=== PATIENT | female | born 1945 | race Caucasian/White ===

== ENCOUNTER 2017-02-01 17:05 | Inpatient (IN) | payer MEDICARE ==
[2017-02-01] VITALS (7 sets, daily range): BP systolic 111–139; BP diastolic 75–98; PULSE 63–109; RESP 16–20; O2SAT 96–99
[~2017-02-01] VITALS: Ht 157.5 cm; Wt 71.1 kg
--- NOTE | 2017-02-01 17:20 | ED.REPORT ---
HPI-Dizziness / Weakness Date of Service Feb 01, 2017 ED Provider: Yovany Del Angel MD Pt is a 71 y/o female w/ a hx of lung CA, COPD, HTN, presenting to the ED via EMS with multiple medical complaints. The patient complains of dizziness, nausea , THOMAS, heart palpitations, general feeling of unwell, all beginning after a chemotherapy treatment 4 days ago at [facility] for lung cancer. Her symptoms have seemed to significantly worsen yesterday. Pt denies vomiting, fever, chills , diarrhea, bleeding, CP, SOB, dysuria, change in diaphoresis. The patient had a similar episode previously caused by chemotherapy treatment but this episode she is concerned because of her elevated heart rate. She states she was seen for rapid heart rate recently at [facility] and was prescribed Metoprolol. There have been no other recent changes in medications. Oncologist: Dr. Chavez Nursing Notes Stated Complaint: DIZZINESS Chief Complaint: General Complaint Nursing Notes Reviewed: Yes ([employer], Source MDxs not reconciled) Allergies: Coded Allergies: ciprofloxacin (Unverified Allergy, Mild, rash, 02/01/17) General Time Seen by MD: 17:17 Chief Complaint Generalized weakness Hx Obtained From: Patient, EMS Arrived By: Ambulance Onset Occurred: 4 days ago Symptom Duration: Since onset Severity: Current: No pain currently Severity: Maximum: No pain Recent Healthcare: Previous diagnosis Similar Sx Previous: Yes Past Medical History Past Medical History Lung cancer - chemotherapy treatment DDD Hypertension COPD 1 L NC dependent History of C. difficile colitis in October 2016 GERD Hyperlipidemia Hypertension Sleep apnea Past Surgical History Left subclavian port Hysterectomy Knee Hysterectomy Proscar skip E in November 2016 Colonoscopy with polypectomy Ectopic surgery Lumbar disc surgery Reports: Appendectomy Smoking History Current Every Day Smoker Social History Alcohol Use: Denies alcohol use Drug Use: Denies drug use Ambulatory Status Independent Review of Systems Constitutional: Reports: Fatigue, Malaise, Weakness - generalized, Denies: Chills, Fever Respiratory: Denies: Non-productive cough, Shortness of breath Cardiovascular: Reports: Palpitations, Denies: Chest pain, Dyspnea on exertion GI: Reports: Nausea, Denies: Abdominal pain, Bloody/tarry stool, Diarrhea, Melena, Vomiting Hematologic: Denies Bleeding Skin: Denies Diaphoresis Neurologic: Reports: Dizziness, Headache, Lightheaded Complete sys rev & neg: except as marked. Female: Denies: Dysuria Physical Exam Initial Vital Signs Vital Signs (First) Date Time Temp Pulse Resp B/P Pulse Ox O2 Delivery O2 Flow Rate FiO2 02/01/17 17:00 36.6 67 19 112/93 97 Room Air Initial VS: Reviewed, Vital signs normal ENT: Mucous membranes moist, Conjunctiva normal, No scleral icterus Neck: Supple, Full range of motion Abdomen / GI: Soft, Non-tender, No distention Extremities: Vascular intact, Neuro intact, No swelling Skin: Warm, Dry, No cyanosis Psychiatric: Mood/affect normal, Behavior normal, Normal thought content General/Constitutional: Awake, Alert, No acute distress, Cooperative, Not toxic appearing Appears fatigued Head / Eyes: Atraumatic, Normocephalic, PERRL Respiratory / Chest: Breath sounds NL, Breath sounds = bilat, No respiratory distress, No rales, No rhonchi, No wheezing, No retractions, No stridor Cardiovascular: Heart rate NL, Regular rhythm, Heart sounds NL, No gallop, No murmurs, No rubs Neurologic: Oriented X3, Speech NL, No motor deficits, No sensory deficits, CN II - XII intact, Cerebellar NL, Memory NL Interpretation & Diagnostics Lab Results Interpretation Result Diagram: 02/01/17 1715 Test 02/01/17 17:15 White Blood Count 7.1th/mm3 (3.8-10.1) Red Blood Count 4.34mil/mm3 (3.90-5.20) Hemoglobin 12.8g/dL (12.0-15.6) Hematocrit 35.7% (35.0-46.0) Mean Corpuscular Volume 82.3fL (81-100) Mean Corpuscular Hemoglobin 29.5pg (27.0-35.0) Mean Corpuscular Hemoglobin Concent 35.9% (32.0-37.0) Red Cell Distribution Width 15.1% (12.3-15.4) Platelet Count 135bil/L (150-400) Neutrophils (%) (Auto) 86.1% (40-74) Lymphocytes (%) (Auto) 9.6% (14-46) Monocytes (%) (Auto) 3.7% (4-12) Eosinophils (%) (Auto) 0.3% (0-5) Basophils (%) (Auto) 0% (0-3) Lab Results Interpretation: CBC normal Labs pending Re-Eval/Medical Decision Med Decision/Clinical Course This is a 71-year-old female with lung cancer who is oncologist is at [facility] who reports that she got chemotherapy about a week ago now developed dizziness and nausea and feels terrible-this is happening as previous chemotherapy. She has recenty develops a rapid heart rate, as recently seen at [facility] ED and started metoprolol, and she has been on this medicine for a week. She states that her symptoms are mainly from her chemotherapy she has gotten the dizziness and weakness and nausea with it before, she was slightly rapid heart rate as well, so became increasing concerned and came to the ED. She has not had chest pain, not had shortness of breath, she has not had fevers , she is not had new diaphoresis she has had night sweats for several months, she denies leg swelling or findings of DVT. And she appears fatigued, but nontoxic. She is in no distress. Point an EKG, screening labs are being obtained-the patient is being turned over to Dr. Ivan for further evaluation. Records being obtained from [facility]. Source of Hx: Old records Counseled Regarding: Diagnosis, Lab results, Need for follow-up, When/why to return to ED Patient Discharge & Departure Shift Change Sign-Out Patient Care Transferred: Yes Discussed Complaint(s): Yes Laboratory Evaluation: Ordered, not yet done Impression: Primary Impression: Dizziness Additional Impressions: Nausea Dehydration Chemotherapy induced nausea and vomiting Disposition: Home Discharge Condition All VS Reviewed: Yes Condition: Stable Referrals: Jaycob Starr (PCP) Care Transferred to: Dr Jenkins Care Transferred at: 18:05 Baudilio Attestation Portions of this note were transcribed by Edmund Carnes. I, Dr. Del Angel personally performed the history, physical exam and medical decision-making; I reviewed and confirmed the accuracy of the information in the transcribed note. Signed by Baudilio Jeffrey, 02/01/17 - 6 Jaycob Starr Matthew F MD Feb 01, 2017 17:20 EDMUND CARNES Feb 01, 2017 17:29
[2017-02-01] MEDS ORDERED: Promethazine Inj 25 MG in Dextrose 5%-Pha MIX 50 ML IV ONE (17:30)
[2017-02-01] MEDS ORDERED: 0.9% Sodium Chloride 1,000 ML IV ONE ×2 (17:30→22:20)
[2017-02-01] MEDS ORDERED: CeFAZolin 2 Gm/50 mL D5W Duplex Bag IV ONE (17:35)
[2017-02-01 17:43] LABS: BASOPHILS % (AUTO) 0 % (0-3); EOSINOPHILS % (AUTO) 0.3 % (0-5); MONOCYTES % (AUTO) 3.7 % (4-12); Mean Corpuscular Hemoglobin 29.5 pg (27.0-35.0); Mean Corpuscular Volume 82.3 fL (81-100); NEUTROPHILS % (AUTO) 86.1 % (40-74); Platelet Count 135 bil/L (150-400)
[2017-02-01 18:11] LABS: TROPONIN T < 0.010 ug/L (0.0-0.011)
[2017-02-01 19:41] LABS: APPEARANCE,URINE CLOUDY (CLEAR,HAZY); COLOR,URINE YELLOW (YELLOW)
[2017-02-01 19:42] LABS: PH,URINE 6.5 (5.0-8.0)
[2017-02-01 19:43] LABS: OCCULT BLOOD,URINE TRACE (NEGATIVE); UROBILINOGEN,URINE NORMAL (NORMAL)
[2017-02-01] MEDS ORDERED: cefTRIAXone Inj 2,000 MG in Dextrose 5% Minibag Plus 50 ML IV ONE (19:55)
[2017-02-01] MEDS ORDERED: Alum-Mag Hydrox-Simeth 30 mL Suspension PO PRN ×2 (22:50→23:00)
[2017-02-01] MEDS ORDERED: Ondansetron 2 mg/mL 2 mL Inj IVPUSH PRN ×2 (22:50→23:00)
--- NOTE | 2017-02-01 22:58 | PCM.HPMED ---
Subjective Date of Service Feb 01, 2017 Primary Provider: Admitting Physician: Eliza Sanches DO Primary Care Physician: Tom Willingham MD Attending Physician: Eliza Sanches DO Admit Status: From the Emergency Department Chief Complaint: dizziness, nausea, THOMAS, heart palpitations History of Present Illness: Patient is a 71 year old female with history of lung CA, COPD, and HTN who presents with dizziness, nausea, headache, palpitations, and general weakness and malaise, all beginning after a chemotherapy treatment 4 days ago at [place] for lung cancer. She states she has had similar symptoms of dizziness, weakness, and nausea in the past after chemotherapy, but her symptoms have seemed to significantly worsened yesterday and today she is concerned because of her elevated heart rate. She states she was seen for rapid heart rate recently at [facility] and was prescribed Metoprolol. There have been no other recent changes in medications. She denies vomiting, fever, chills, diarrhea, bleeding, CP, SOB, dysuria, worsening diaphoresis, syncope, focal weakness or numbness, or vision changes. Further history was limited as the patient was somnolent n the room on admission after receiving Benadryl. On admission, WBC 7.1 with 86.1% neutrophils, Hb 12.8, Hct 35.7, plt 135. Na 131 , Cl 91, glucose 162, calcium 10.2. Troponin <0.01. Lactic acid 1.1. UA showed 11-50 WBCs, positive nitrite, large leukocyte esterase, many bacteria. Temp was 36.9. HR was 109 but improved to 63. EKG showed atrial flutter. Oncologist: Dr. Chavez Review of Systems: Comprehensive review of systems conducted and was negative except for the pertinent positives listed above. Allergies Coded Allergies: ciprofloxacin (Unverified Allergy, Mild, rash, 02/01/17) Home Medications None listed PMH Lung cancer - chemotherapy treatment DDD Hypertension Hyperlipidemia Sleep apnea COPD 1 L NC dependent History of C. difficile colitis in October 2016 GERD Surgical History Left subclavian port Hysterectomy Knee Hysterectomy Proscar skip E in November 2016 Colonoscopy with polypectomy Ectopic surgery Lumbar disc surgery Appendectomy Family History Father: Lung cancer Sisters: Lung and pancreatic cancer Social History Hx Alcohol Use: No Hx Substance Use: No Smoking Status: Current Every Day Smoker Exam Vital Signs Vital Sign - Last Date Time Temp Pulse Resp B/P Pulse Ox O2 Delivery O2 Flow Rate FiO2 02/01/17 21:39 36.9 63 17 111/78 98 Nasal Cannula 1 Exam General: Somnolent but arousable, Oriented, Cooperative, No acute distress Head: Normocephalic, atraumatic. External ears normal. Eyes: PERRLA, EOMI. Anicteric sclerae. Mouth: Mouth normal, Mucous membranes moist/pink Neck: Neck supple with full range of motion. Chest& Lungs: Clear to auscultation bilaterally with no crackles, wheezes, or rhonchi. Cardiovascular: Regular rate/rhythm, Normal S1, Normal S2, No murmurs/rubs/ gallops Abdomen: Non-tender, Non-distended, No masses, Normoactive bowel tones, Soft Musculoskeletal: Normal range of motion Extremities: No cyanosis/clubbing/edema bilaterally Neurological: Grossly neurologically intact. Normal speech Lab and Diagnostics Result Diagram: 02/01/17171402/01/171714 Assessment & Plan Patient is a 71 year old female with history of lung CA, COPD, and HTN who presents with dizziness, nausea, headache, palpitations, and general weakness and malaise, all beginning after a chemotherapy treatment 4 days ago at [place] for lung cancer. Urinary tract infection, acute. - Patient does not appear septic, although she appears dehydrated. WBC is normal at 7.1, though with a left shift of 86.1%. There may be some myelosuppression from chemotherapy. She has a ciprofloxacin allergy (rash). - NS @ 50 ml/hr - Blood and urine cultures pending - Monitor CBC and BMP - Ceftriaxone 1000 mg daily Atrial flutter, acute. - EKG showed atrial flutter on admission. Pt has no prior history. [id number] score 3. - Monitor on telemetry - AM team to discuss with patient and oncologist starting anticoagulation such as warfarin - Continue home metoprolol (after med rec completed) COPD, chronic - Pt is dependent on oxygen (1 L NC). Continue O2 by nasal cannula. Hyperglycemia, acute - Pt has no prior hx of DM. Glucose 162. - A1c ordered - Monitor BG Hyponatremia, unknown acuity - Na 131. Possible SIADH related to lung cancer. - NS @ 50 ml/hr - Monitor BMP Other Medical Conditions Lung cancer - chemotherapy treatment DDD Hypertension Hyperlipidemia Sleep apnea History of C. difficile colitis in October 2016 GERD CODE STATUS: Pt requests CPR and defib but declines intubation. Was unable to have extended discussion with pt as she was significantly sedated in the ED; recommend further discussion tomorrow. Med Rec: Patient med rec not completed. No medications listed. Defer to day team to complete med rec. - Bowel regimen as needed - Antiemetic as needed Patient is admitted under inpatient status with expected length of stay greater than 2 midnights due to severity of presenting symptoms, risk of adverse event, and complexity of treatment plan. VTE Prophylaxis: Sub-Q Heparin (Unfractionated) Resuscitation Status: Limited Interventions Attending Statement The patient was seen and examined together with house staff on 02/01/2017 and I agree with the history, exam and plan as outlined in the note above. Brennen Guzmán Feb 01, 2017 22:58 Eliza Sanches DO Feb 02, 2017 04:50
[2017-02-01] MEDS ORDERED: Polyethylene Glycol (PEG) 17 Gm Powder PO PRN (23:00)
[2017-02-02] VITALS (12 sets, daily range): BP systolic 89–148; BP diastolic 57–87; PULSE 78–176; RESP 16–24; O2SAT 96–100
--- NOTE | 2017-02-02 00:01 | NUR ---
Admit Pt admitted with UTI, Hypotension, and New Onset Afib. Pt arrived via gurney accompanied by ED RN. Pt transferred to hospital bed with SBA, gait steady. Pt placed on Tele. Tele SR, HR 70s with intermittent bouts of Afib/Aflutter with HR 90s to 120s, then back to SR per [employer]illing Machine Hand. No c/o SOB, RA sats 96%. Denies dizziness or nausea at this time. VS stable and afebrile. IV NS infusing at 50mls/hour per MD orders. Pt somnolent but arousable, A&O X3 when awake, but then falls back to sleep again. Pt received IV Phenergan and IV Benadryl in the ED prior to admit to P[facility]. Pt has Radiation appointment at 1045 tomorrow and would still like to go if that can be arranged. Pt oriented to room, bed, TV, Telephone and call light system. [place] bed alarm and bed alarm activated for safety. Med rec unable to be completed, no med list available and Pt unable to recall her meds.
[2017-02-02] MEDS: 0.9% Sodium Chloride 1,000 ML IV SCH ×3 (00:03→20:47)
[2017-02-02] MEDS: Heparin 5,000 Unit/mL Inj SUBQ SCH ×2 (00:08→10:39)
--- NOTE | 2017-02-02 00:54 | PCM.CONPHA ---
Subjective Date of Service: Feb 02, 2017 Requesting Provider: Brennen Guzmán dizziness, nausea, THOMAS, heart palpitations History of Present Illness new onset atrial fibrillation Reason for Pharmacy Consult: Anticoagulation Management Objective Assessment/Plan Assessment/Plan A. - 71 y/o female patient needed warfarin for new onset of atrial fibrillation. She is undergoing chemotherapy treatment for lung cancer, and has hx of hypertension - CHADS score: 3; Heparin 5000u sq q8 - Hct/Plt: 36.7/135 - antibiotic for UTI: Ceftriaxone - No sign/symptom of bruise/bleeding P/ - Give one time dose warfarin 5mg. - INR ordered until 02/04 Pharmacy will monitor daily Thank you Amadeo Reaves Feb 02, 2017 00:54
[2017-02-02 03:48] LABS: BASOPHILS % (AUTO) 0 % (0-3); EOSINOPHILS % (AUTO) 0.3 % (0-5); MONOCYTES % (AUTO) 2.8 % (4-12); Mean Corpuscular Hemoglobin 29.4 pg (27.0-35.0); Mean Corpuscular Volume 84.2 fL (81-100); Platelet Count 95 bil/L (150-400)
[2017-02-02] MEDS ORDERED: Diltiazem 5 mg/mL 5 mL Inj IVPUSH ONE (04:00)
[2017-02-02 04:04] LABS: INR 0.94 ratio
--- NOTE | 2017-02-02 04:20 | NUR ---
Tele No c/o chest pain, Pt's Tele has been in Afib/Aflutter for about 1 hr with HR sustaining in the 120-140's, with intermittent spikes to the 160-175s. notified and new order for IVP Cardizem 15mg and was administered. HR decreased to the 70s and 80s after Cardizem was administered, Tele still Afib/Aflutter. Addendum: 02/02/17 at 0615 by FALLON BEGUM RN Around 0445 Pt convert back to Tele SR 80's per Guest Services Lead.
[2017-02-02] MEDS ORDERED: Amoxicillin-Clav 500-125 mg Tablet PO SCH (08:30)
[2017-02-02] MEDS ORDERED: ALBU18HF INHALATION (10:56)
[2017-02-02] MEDS ORDERED: ACET325T51 PO (10:56)
[2017-02-02] MEDS ORDERED: FLUT16SP NOSTRIL (10:56)
[2017-02-02] MEDS ORDERED: PRE20 PO (10:56)
[2017-02-02] MEDS ORDERED: METO25TA6 PO (10:56)
[2017-02-02] MEDS ORDERED: HYDR-4003 PO (10:56)
[2017-02-02] MEDS ORDERED: NYST1000 S&SWALLOW (10:56)
[2017-02-02] MEDS ORDERED: ONDA-54 PO (10:56)
[2017-02-02] MEDS ORDERED: PROC10TA PO (10:56)
[2017-02-02] MEDS ORDERED: SYMINH INHALATION (10:56)
[2017-02-02] MEDS ORDERED: ZOLP5TAB6 PO (10:56)
[2017-02-02] MEDS ORDERED: CYCL10TA9 PO (10:57)
[2017-02-02] MEDS ORDERED: BENA20TA PO (10:57)
[2017-02-02] MEDS ORDERED: DILT180C81 PO (10:58)
[2017-02-02] MEDS ORDERED: MOME13HF IH (10:59)
[2017-02-02] MEDS ORDERED: DOCO1CAP3 PO (11:00)
[2017-02-02] MEDS ORDERED: MULT1CAP33 PO (11:01)
[2017-02-02] MEDS ORDERED: OMEP20TA86 PO (11:01)
[2017-02-02] MEDS ORDERED: PRAV80TA2 PO (11:02)
[2017-02-02] MEDS ORDERED: PARO30TA4 PO (11:02)
[2017-02-02] MEDS ORDERED: ASCO500C6 PO (11:03)
[2017-02-02] MEDS ORDERED: CHOL10008 PO (11:04)
[2017-02-02] MEDS ORDERED: DXM4T PO (11:05)
[2017-02-02] MEDS ORDERED: MOMETASONE IH SCH (12:40)
[2017-02-02] MEDS ORDERED: FORMOTEROL IH SCH (12:40)
[2017-02-02] MEDS ORDERED: HYDROcodone-APAP 5-325 mg Tablet PO PRN (12:40)
[2017-02-02] MEDS ORDERED: Albuterol HFA 60 Puff 8 Gm Inhaler INHALATION PRN (12:40)
[2017-02-02] MEDS ORDERED: Diltiazem CD 180 mg ER24 Capsule PO SCH (12:40)
[2017-02-02] MEDS: Fluticasone 0.05% 15 Spray/2 Gm 16 Gm Nasal Spray NOSTRIL SCH ×3 (12:40→20:30)
[2017-02-02] MEDS ORDERED: Budesonide-Formot 160-4.5 mCg 6.9 Gm Inhaler INHALATION SCH (12:40)
[2017-02-02] MEDS ORDERED: Diltiazem Inj 125 MG in 0.9% Sodium Chloride 100 ML, Pharmacy To Mix 1 EA IV SCH (14:05)
[2017-02-02] MEDS: Albuterol-Ipratropium 3 mL Inhalation Solution NEB PRN ×2 (14:13→19:56)
[2017-02-02] MEDS: PARoxetine 20 mg Tablet PO SCH (15:28)
[2017-02-02] MEDS: Pantoprazole 20 mg ER24 Tablet PO SCH (15:29)
[2017-02-02] MEDS: Diltiazem CD 240 mg ER24 Capsule PO SCH (16:17)
--- NOTE | 2017-02-02 18:13 | NUR ---
Tele/Stools/Resp/Portacath Patient a/o x 4, denies pain or nausea, but c/o hunger between meals. This RN gave patient snack list to order between meals. Patient oob indep to bathroom, had several liq stools this afternoon, MD notified. Lungs decreased with wheezes throughout, patient c/o tightness and difficulty catching breath, neb tx ordered and given per RTC. See vitals. Tele A fib/A flutter RVR 110-170's, patient denies chest pain, but does feel heart racing, home meds started. Tele intermittently converts to SR for short periods. Patient loss IV access, IVT paged and portacath accessed.
[2017-02-02] MEDS ORDERED: 0.9% Sodium Chloride 250 ML IV SCH (19:35)
[2017-02-02] MEDS ORDERED: Sodium Chloride LOK Flush 10 mL Syringe IVFLUSH PRN ×2 (19:35)
[2017-02-02] MEDS ORDERED: HepLOK Flush 100 unit/mL 5 mL Inj IVFLUSH PRN (19:35)
[2017-02-02] MEDS: Budesonide 0.5 mg/2 mL Inhalation Solution NEB SCH (19:56)
[2017-02-02] MEDS: Arformoterol 15 mCg/2 mL Inhalation Solution NEB SCH (19:56)
[2017-02-02] MEDS ORDERED: cefTRIAXone Inj 1,000 MG in Dextrose 5% Minibag Plus 50 ML IV SCH (20:00)
--- NOTE | 2017-02-02 23:08 | PCM.PNMED ---
Subjective Date of Service Feb 02, 2017 Subjective Overnight Events. Pt in Afib/Aflutter for about 1 hr with HR sustaining in the 120-140's, with intermittent spikes to the 160-175s. IVP Cardizem 15mg and was administered. HR decreased to the 70s and 80s after Cardizem was administered, Tele still Afib/Aflutter. She is resting in bed comfortably and in no acute distress. Patient was experiencing some SOB, which improved after neb treatment. She also mentions some headache. She's had 3 episodes of small amounts of diarrhea. She does have a history of C. diff treated within the last 3 months. The patient reports feeling better overall than the day prior. The patient denies dizziness, chest pain, abdominal pain, nausea, vomiting, constipation. The patient is voiding and eliminating without difficulty. Exam Vital Signs Vital Sign - Last Date Time Temp Pulse Resp B/P Pulse Ox O2 Delivery O2 Flow Rate FiO2 02/02/17 22:48 36.9 83 20 121/60 97 Room Air 02/01/17 21:39 1 Intake and Output 02/01/17 02/01/17 02/02/17 Cumulative From/Thru 15:00 23:00 07:00 02/01/17 17:00 - 02/02/17 06:23 Intake Total 1000 ml 257 ml 1257 ml Output Total 700 ml 700 ml Balance 1000 ml -443 ml 557 ml Intake Oral 100 ml 100 ml IV Total 1000 ml 157 ml 1157 ml Output Urine Total 700 ml 700 ml Exam General: No acute distress, well-developed, well-nourished, appropriately interactive HEENT: Normocephalic, atraumatic. Anicteric sclerae, Cardiovascular: Regular rate and rhythm with no murmurs, rubs, or gallops appreciated Pulmonary: Has some wheezing more apparent in right lung than left. Otherwise clear to auscultation with no crackles or rhonchi. Normal respiratory effort with no use of accessory muscles. Abdomen: Bowel tones present. Soft, nontender, nondistended. No hepatosplenomegaly or masses appreciated. Extremities: No clubbing, cyanosis, edema, or lymphadenopathy appreciated. Neurological: Cranial nerves grossly intact. Psychiatric: Normal mood and affect. Alert and oriented to person, place, and time. Lab and Diagnostics Result Diagram: 02/02/17 0335 02/02/17 0335 Assessment & Plan Patient is a 71 year old female with history of lung CA, COPD, and HTN who presents with dizziness, nausea, headache, palpitations, and general weakness and malaise, all beginning after a chemotherapy treatment 4 days ago at [place] for lung cancer. Urinary tract infection, acute. - Patient does not appear septic, although she appears dehydrated. WBC is normal at 6.1, though with a left shift of 89.0%. There may be some myelosuppression from chemotherapy. She has a ciprofloxacin allergy (rash). - NS @ 50 ml/hr - Blood cultures negative so far, Urine culture shows gram negative rods, suspected E. coli - Monitor CBC and BMP - Ceftriaxone 1000 mg daily Atrial flutter, acute. - EKG showed atrial flutter on admission. Pt has no prior history. [id number] score 3. - Monitor on telemetry - social work consulted for starting either eliquis, pradaxa or xarelto dependent on insurance coverage for DVT prophylaxis. Patient prefers not to be on Warfarin due to frequent checks. - DC metoprolol, started diltiazem 240 mg PO daily. Patient is normally on 180 mg PO at home., but requiring better rate control. Diarrhea, active - Could be secondary to C. diff as patient has history 3 months ago. Patient reports having 3 episodes of diarrhea in the afternoon - Enteric precautions - Procalcitonin and CBC in the AM - Consider adding Vancomycin if more episodes occur. COPD, chronic - Pt is dependent on oxygen (1 L NC). Continue O2 by nasal cannula. - Duoneb, Brovana and Pulmicort nebs ordered Hyperglycemia, acute - Pt has no prior hx of DM. Glucose 162. - A1c pending - Monitor BG Hyponatremia - resolved - On admission Na 131. Possible SIADH related to lung cancer. Now at 137 - NS @ 50 ml/hr - Monitor BMP Other Medical Conditions Lung cancer - chemotherapy and radiation treatment DDD Hypertension Hyperlipidemia Sleep apnea History of C. difficile colitis in October 2016 GERD Pain Evaluation: Adequate Pain Control VTE Prophylaxis: Sub-Q Heparin (Unfractionated) Resuscitation Status: Limited Interventions Limited Interventions: Compressions, Cardioversion/Defibrillation Attending Statement The patient was seen and examined together with Dr. Hines on 02/02/2017 and I agree with the history, exam and plan as outlined in the note above. . Wesley Hines DO Feb 02, 2017 23:08 Luis Evans MD Feb 03, 2017 20:11
[2017-02-03 02:45] VITALS: BP 138/70; PULSE 66; RESP 20; O2SAT 98
[2017-02-03 05:08] LABS: BASOPHILS % (AUTO) 0 % (0-3); EOSINOPHILS % (AUTO) 0 % (0-5); MONOCYTES % (AUTO) 2.6 % (4-12); Mean Corpuscular Hemoglobin 28.9 pg (27.0-35.0); Mean Corpuscular Volume 82.8 fL (81-100); NEUTROPHILS % (AUTO) 92.1 % (40-74); Platelet Count 82 bil/L (150-400)
--- NOTE | 2017-02-03 06:05 | NUR ---
Tele / Pain / BM's / VSS No c/o chest pain, pressure or palpitation, Tele SR with occ PACs with HR 60-90's overnight per Recording Artist. VS stable and afebrile. Pt c/o generalized back pain 5/10. Pt medicated with PO Vicodin X 1 tab and pain resolved. Pt had two soft stools overnight with no bouts of nausea. VS stable and afebrile.
[2017-02-03 07:20] VITALS: BP 164/72; PULSE 62; RESP 20; O2SAT 99
[2017-02-03 07:25] VITALS: PULSE 62
[2017-02-03] MEDS: Arformoterol 15 mCg/2 mL Inhalation Solution NEB SCH (07:36)
[2017-02-03] MEDS: Budesonide 0.5 mg/2 mL Inhalation Solution NEB SCH (07:36)
[2017-02-03] MEDS: Albuterol-Ipratropium 3 mL Inhalation Solution NEB PRN (07:36)
[2017-02-03 07:40] VITALS: PULSE 66; RESP 16; O2SAT 99
[2017-02-03] MEDS: Diltiazem CD 240 mg ER24 Capsule PO SCH (08:16)
[2017-02-03] MEDS: PARoxetine 20 mg Tablet PO SCH (08:17)
[2017-02-03] MEDS: Pantoprazole 20 mg ER24 Tablet PO SCH (08:17)
[2017-02-03] MEDS: Fluticasone 0.05% 15 Spray/2 Gm 16 Gm Nasal Spray NOSTRIL SCH (08:17)
--- NOTE | 2017-02-03 09:32 | PCM.DIMED ---
Wesley Hines DO 02/03/17 0932: Discharge Instructions Date of Service Feb 03, 2017 Dates of Hospitalization Feb 01, 2017 at 21:40 Discharge Diagnosis Discharge Diagnosis Atrial Flutter and UTI Medication Instructions Additional med instructions Samara take one pill twice per day until revaluated by your primary care physician. We recommend this for prophylaxis for blood clots. Bactrim 160 mg by mouth twice a day for 3 days for urinary tract infection. Pyridium 200 mg three times a day for 2 days We changed diltiazem to 240 mg pills by mouth once per day. Please stop taking your metoprolol until reevaluation by primary care physician Diet Discharge Diet: No restrictions Activity Discharge Activity: No restrictions Call your provider Call your provider for: Shortness of breath, Bleeding, Chest pain, Excessive diarrhea Patient Instructions Follow-up plan Follow up for blood thinner medication, UTI and anti hypertensives Follow-up Provider: JARRETT DAVID MD Follow-up with PCP in: 2 weeks (1-2 weeks) Luis Evans MD 02/03/17 2012: Discharge Instructions Attending's Statement The patient was seen and examined together with Dr. Hines on 02/03/2017 and I agree with the history, exam and plan as outlined in the note above. . Wesley Hines DO Feb 03, 2017 09:32 Luis Evans MD Feb 03, 2017 20:12
[2017-02-03] MEDS ORDERED: APIX2.5T PO (09:35)
[2017-02-03] MEDS ORDERED: DILT240C85 PO (09:35)
[2017-02-03] MEDS ORDERED: SULF1TAB35 PO (09:45)
[2017-02-03] MEDS ORDERED: PHEN-684 PO (09:48)
--- NOTE | 2017-02-03 10:20 | NUR ---
Discharge note Patient a/o x4, denies pain, nausea or sob. Up indep in room steady gait. Taking diet well. Lungs decreased bilat, neb tx given per RTC. VSS, tele SR 70-90's. IV deaccessed by IVT and tele discontinued. Patient given discharge instructions, medication reconciliation, new prescriptions, info on diagnosis and new meds. All questions answered. Patient taken to the car via wheelchair with all belongings and discharged home with family.
--- NOTE | 2017-02-03 16:24 | PCM.DC.MED ---
Discharge Summary Date of Service Feb 03, 2017 Dates of Hospitalization Date of Hospital Admission Feb 01, 2017 at 21:40 Date of Discharge: Feb 03, 2017 Providers: Admitting Physician: Luis Evans MD Primary Care Physician: Tom David MD Attending Physician: Luis Evans MD Resident Senior: Santi Santos DO Philosophy Lecturer: Tony Hines DO Diagnosis at Time of Discharge Diagnosis at Time of Discharge Atrial Flutter and UTI Brief History Patient is a 71 year old female with history of lung CA, COPD, and HTN who presented with dizziness, nausea, headache, palpitations, and general weakness and malaise, all beginning after a chemotherapy treatment 4 days ago at [place] for lung cancer. She was found to have a UTI though no leukocytosis and also atrial flutter on EKG with no prior history and so was admitted to the hospital. She fluctuated in and out of atrial flutter with HR up into 170. She was started on ceftriaxone for her UTI and had her home diltiazem increased to 240 mg PO. She responded well with the increased dose in diltiazem and without any further occurrence of atrial flutter and significant improvement in her symptoms. Her [id number] score was calculated at 3 and so she was started on Eliquis for DVT prophylaxis. She was discharged with a prescription for Eliquis , Bactrim, pyridoxine and diltiazem 240 mg. Hospital Course Patient is a 71 year old female with history of lung CA, COPD, and HTN who presented with dizziness, nausea, headache, palpitations, and general weakness and malaise, all beginning after a chemotherapy treatment 4 days ago at [facility] for lung cancer. Urinary tract infection, resolving. - Patient did not appear septic, although she appears dehydrated. WBC was normal at 6.1, though with a left shift of 89.0%. There may be some myelosuppression from chemotherapy. She has a ciprofloxacin allergy (rash). - NS was given @ 50 ml/hr - Blood cultures were negative, Urine culture showed gram negative rods with suspected E. coli - Ceftriaxone was given 1000 mg daily Atrial flutter, resolved. - EKG showed atrial flutter on admission. Pt has no prior history. [id number] score 3. - Monitored on telemetry - Eliquis started for DVT prophylaxis - DC metoprolol, started diltiazem 240 mg PO daily. Patient is normally on 180 mg PO at home., but required better rate control. Diarrhea, stable - Could be secondary to C. diff as patient has history 3 months ago. Patient reports having 3 episodes of diarrhea in the afternoon - Procalcitonin and white count were not elevated. COPD, chronic - Pt is dependent on oxygen (1 L NC). Continued O2 by nasal cannula. - Patient was on Duoneb, Brovana and Pulmicort nebs Hyperglycemia, acute - Pt had no prior hx of DM. Glucose up to 242. - A1c found to be 6.6 Hyponatremia - resolved - On admission Na 131. Possible SIADH related to lung cancer vs pseudohyponatremia with elevated blood sugar. - NS was given at @ 50 ml/hr Other Medical Conditions Lung cancer - chemotherapy and radiation treatment DDD Hypertension Hyperlipidemia Sleep apnea History of C. difficile colitis in October 2016 GERD Exam Vital Signs (Last) Date Time Temp Pulse Resp B/P Pulse Ox O2 Delivery O2 Flow Rate FiO2 02/03/17 07:40 66 16 99 Room Air 02/03/17 07:20 36.7 164/72 02/01/17 21:39 1 Exam General: No acute distress, well-developed, well-nourished, appropriately interactive HEENT: Normocephalic, atraumatic. Anicteric sclerae, Cardiovascular: Regular rate and rhythm with no murmurs, rubs, or gallops appreciated Pulmonary: Lungs clear to auscultation bilaterally with no crackles, wheezing or rhonchi. Normal respiratory effort with no use of accessory muscles. Abdomen: Bowel tones present. Soft, nontender, nondistended. No hepatosplenomegaly or masses appreciated. Extremities: No clubbing, cyanosis, edema, or lymphadenopathy appreciated. Neurological: Cranial nerves grossly intact. Psychiatric: Normal mood and affect. Alert and oriented to person, place, and time. Test 02/01/17 17:15 02/01/17 19:02 02/01/17 21:10 02/02/17 03:35 D-Dimer 0.73mg/L FEU (<0.50) Hemoglobin A1c 6.6% (4.8-5.6) Troponin T < 0.010ug/L (0.0-0.011) Urine Color Yellow (YELLOW) Urine Appearance Cloudy (CLEAR,HAZY) Urine pH 6.5 (5.0-8.0) Urine Specific [place] <1.005 (1.003-1.035) Urine Protein Negativemg/dL (NEG,TRACE) Urine Glucose (UA) Negativemg/dL (NEGATIVE) Urine Ketones Negativemg/dL (NEGATIVE) Urine Occult Blood Trace (NEGATIVE) Urine Nitrite Positive (NEGATIVE) Urine Bilirubin Negative (NEGATIVE) Urine Urobilinogen Normalmg/dL (NORMAL) Urine Leukocyte Esterase Large (NEGATIVE) Urine RBC 3-10/hpf (0-2) Urine WBC 11-50/hpf (0-5) Urine Epithelial Cells Occasional/hpf (NONE-MOD) Urine Crystals None seen (NONE SEEN) Urine Bacteria Many/hpf (NONE-FEW) Urine Hyaline Casts None/lpf (NONE) Urine Granular Casts None seen (NONE SEEN) Urine Waxy Casts None seen (NONE SEEN) Urine Red Blood Cell Casts None seen (NONE SEEN) Urine White Blood Cell Casts None seen (NONE SEEN) Urine Mucus None seen (None Seen) Urine Trichomonas None seen (NONE SEEN) Urine Yeast None (NONE SEEN) Urinalysis Comment None Urine Culture Reflexed Indicated Lactic Acid Level 1.1mmol/L (0.4-2.0) Prothrombin Time 10.0sec (8.1-12.5) Prothromb Time International Ratio 0.94ratio Total Bilirubin 0.4mg/dL (0.0-1.2) Aspartate Amino Transf (AST/SGOT) 14U/L (0-50) Alanine Aminotransferase (ALT/SGPT) 25U/L (0-32) Alkaline Phosphatase 43U/L (25-165) Total Protein 5.3g/dL (6.4-8.4) Albumin 3.2g/dL (3.4-5.0) Test 02/03/17 04:53 White Blood Count 3.9th/mm3 (3.8-10.1) Red Blood Count 3.43mil/mm3 (3.90-5.20) Hemoglobin 9.9g/dL (12.0-15.6) Hematocrit 28.4% (35.0-46.0) Mean Corpuscular Volume 82.8fL (81-100) Mean Corpuscular Hemoglobin 28.9pg (27.0-35.0) Mean Corpuscular Hemoglobin Concent 34.9% (32.0-37.0) Red Cell Distribution Width 14.6% (12.3-15.4) Platelet Count 82bil/L (150-400) Neutrophils (%) (Auto) 92.1% (40-74) Lymphocytes (%) (Auto) 4.8% (14-46) Monocytes (%) (Auto) 2.6% (4-12) Eosinophils (%) (Auto) 0% (0-5) Basophils (%) (Auto) 0% (0-3) Sodium Level 131mEq/L (134-144) Potassium Level 5.2mEq/L (3.5-5.2) Chloride Level 97mEq/L (97-108) Carbon Dioxide Level 22mmol/L (18-29) Blood Urea Nitrogen 17mg/dL (8-27) Creatinine 0.53mg/dL (0.57-1.00) Estimat Glomerular Filtration Rate 163mL/min (>59) Glucose Level 246mg/dL (60-99) Calcium Level 9.4mg/dL (8.5-10.1) Procalcitonin 0.06ng/mL (0.00-0.08) Microbiology Results Laboratory Tests Test 02/03/17 04:53 White Blood Count 3.9th/mm3 (3.8-10.1) Red Blood Count 3.43mil/mm3 (3.90-5.20) Hemoglobin 9.9g/dL (12.0-15.6) Hematocrit 28.4% (35.0-46.0) Mean Corpuscular Volume 82.8fL (81-100) Mean Corpuscular Hemoglobin 28.9pg (27.0-35.0) Mean Corpuscular Hemoglobin Concent 34.9% (32.0-37.0) Red Cell Distribution Width 14.6% (12.3-15.4) Platelet Count 82bil/L (150-400) Neutrophils (%) (Auto) 92.1% (40-74) Lymphocytes (%) (Auto) 4.8% (14-46) Monocytes (%) (Auto) 2.6% (4-12) Eosinophils (%) (Auto) 0% (0-5) Basophils (%) (Auto) 0% (0-3) Sodium Level 131mEq/L (134-144) Potassium Level 5.2mEq/L (3.5-5.2) Chloride Level 97mEq/L (97-108) Carbon Dioxide Level 22mmol/L (18-29) Blood Urea Nitrogen 17mg/dL (8-27) Creatinine 0.53mg/dL (0.57-1.00) Estimat Glomerular Filtration Rate 163mL/min (>59) Glucose Level 246mg/dL (60-99) Calcium Level 9.4mg/dL (8.5-10.1) Procalcitonin 0.06ng/mL (0.00-0.08) Microbiology 02/01/17 Blood Culture - Preliminary, Resulted NO GROWTH AFTER 24 HOURS 02/01/17 Urine Culture - Final, Complete Escherichia Coli Laboratory Tests Test 02/01/17 19:02 Urine Color Yellow Urine Appearance Cloudy Urine pH 6.5 Urine Specific [place] <1.005 Urine Protein Negativemg/dL Urine Glucose (UA) Negativemg/dL Urine Ketones Negativemg/dL Urine Occult Blood Trace Urine Nitrite Positive Urine Bilirubin Negative Urine Urobilinogen Normalmg/dL Urine Leukocyte Esterase Large Urine RBC 3-10/hpf Urine WBC 11-50/hpf Urine Epithelial Cells Occasional/hpf Urine Crystals None seen Urine Bacteria Many/hpf Urine Hyaline Casts None/lpf Urine Granular Casts None seen Urine Waxy Casts None seen Urine Red Blood Cell Casts None seen Urine White Blood Cell Casts None seen Urine Mucus None seen Urine Trichomonas None seen Urine Yeast None Urinalysis Comment None Urine Culture Reflexed Indicated Discharge Medications Discharge Medications Apixaban (Eliquis) 2.5 Mg Tablet 2.5 MG PO BID Prescribed by: TONY HINES Ascorbic Acid (Vitamin C) 500 Mg Capsule.er 1,000 MG PO DAILY (Reported) Benazepril (Benazepril) 20 Mg Tablet 20 MG PO DAILY (Reported) Budesonide/Formoterol 160-4.5 mcg Inh (Symbicort 160-4.5 mcg Inh) 120 Puff Inhaler 2 PUFFS INHALATION BID (Reported) Cholecalciferol (Vitamin D3) (Vitamin D3) 1,000 Unit Tab.chew 2,000 UNIT PO DAILY (Reported) Dexamethasone (Dexamethasone) 4 Mg Tablet 1 TABLET PO BID (Reported) Diltiazem ER (Cardizem CD) 240 Mg Cap.er.24h 240 MG PO DAILY Prescribed by: TONY HINES Docosahexanoic Acid/Epa (Fish Oil Concentrate Softgel) 1 Each Capsule 1 EACH PO DAILY (Reported) Fluticasone Propionate (Fluticasone Propionate Nasal) 16 Gm [place].susp 1 SPRAY NOSTRIL BID (Reported) Mometasone/Formoterol (Dulera 200 Mcg/5 Mcg Inhaler) 13 Gm Hfa.aer.ad 2 PUFFS IH BID (Reported) Multivitamin (Multivitamins) 1 Each Capsule 1 EACH PO DAILY (Reported) Omeprazole (Omeprazole) 20 Mg Tablet.dr 20 MG PO BID (Reported) Paroxetine (Paroxetine) 30 Mg Tablet 30 MG PO DAILY (Reported) Phenazopyridine (Pyridium) 200 Mg Tablet 200 MG PO TID Prescribed by: TONY HINES Pravastatin (Pravastatin) 80 Mg Tablet 80 MG PO HS (Reported) Sulfamethoxazole/Trimeth 800-160 mg (Bactrim DS 800-160 mg) 1 Each Tablet 1 TABLET PO BID Prescribed by: TONY HINES, As needed Acetaminophen (Acetaminophen) 325 Mg Tablet 1-2 MG PO q4-6h PRN PRN For Fever ( Reported) Albuterol Sulfate (Ventolin HFA Inhaler) 200 Puff/18 Gm Inhaler 2 PUFFS INHALATION Q6H PRN PRN For Shortness of Breath (Reported) Hydrocodone-Acetaminophen 5-325 mg (Hydrocodone-Acetaminophen 5-325 mg) 1 Each Tablet 1-2 TABLET PO Q6H PRN PRN For Pain (Reported) Ondansetron (Ondansetron) 8 Mg Tablet 8 MG PO Q8H PRN PRN For Nausea/Vomiting ( Reported) Prochlorperazine Maleate (Prochlorperazine) 10 Mg Tablet 1 TABLET PO Q8H PRN PRN For Nausea/Vomiting (Reported) Additional med instructions Eliquis take one pill twice per day until revaluated by your primary care physician. We recommend this for prophylaxis for blood clots. Bactrim 160 mg by mouth twice a day for 3 days for urinary tract infection. Pyridium 200 mg three times a day for 2 days We changed diltiazem to 240 mg pills by mouth once per day. Please stop taking your metoprolol until reevaluation by primary care physician Followup Plan Follow-up plan Follow up for blood thinner medication, UTI and anti hypertensives Discharge Diet: No restrictions Discharge Activity: No restrictions Patient Instructions Samara take one pill twice per day until revaluated by your primary care physician. We recommend this for prophylaxis for blood clots. Bactrim 160 mg by mouth twice a day for 3 days for urinary tract infection. Pyridium 200 mg three times a day for 2 days We changed diltiazem to 240 mg pills by mouth once per day. Please stop taking your metoprolol until reevaluation by primary care physician Follow-up Provider: TOM DAVID MD Follow-up with PCP in: 2 weeks (1-2 weeks) Time spent Greater than 30 minutes was spent in preparation of discharge with greater than 50% of that time dedicated to patient counseling and coordination of care. . Attending Statement The patient was seen and examined together with Dr. Hines on 02/03/2017 and I agree with the history, exam and plan as outlined in the note above. . copies to: TOM DAVID MD, Malik A DO Feb 03, 2017 16:24 Luis Evans MD Feb 03, 2017 20:13
--- NOTE | 2017-02-03 16:37 | NUR ---
Social Work Note: Screen Note/Discharge Data& Assessment: EMR reviewed. Radha Munoz is a 71 year old female admitted on 02/01/2017 for UTI and hypotension and new onset AFIB. Per MD pt is medically improved and ready to discharge. JOVITA met with pt at bedside briefly to obtain preferred pharmacy information and assess for any unmet needs. Pt was to be transported to her scheduled radiation treatment this morning at 10:30. Initial Assessment was not fully completed. Pt lives at home with family and is independent at baseline. Pt family transporting pt home after radiation completed. Pt preferred pharmacy is [facility] in [place]. Per MD order, JOVITA faxed prescription for anticoagulant coverage. [place] is $77 MD notified. Pt denies any other needs. No other discharge needs identified. Plan: Per MD pt is medically ready to discharge home via POV. Pt denies any other needs. No other discharge needs identified. RANDY Ruiz
== END 2017-02-03 10:20 | disposition home or self-care (01) | DRG 309 ==
LOC: SED 17:05 → EDBD 17:05 → PCC 21:40
PROVIDERS: ADMIT Internal Medicine; ATTEND Internal Medicine
PROC: 3E033RZ Introduction of Antiarrhythmic into Peripheral Vein, Percutaneous Approach (ICD-10-PCS; principal; 2017-02-02)
DX: I48.92 Unspecified atrial flutter (principal); E22.2 Syndrome of inappropriate secretion of antidiuretic hormone; N39.0 Urinary tract infection, site not specified; C34.90 Malignant neoplasm of unspecified part of unspecified bronchus or lung; J44.9 Chronic obstructive pulmonary disease, unspecified; I10 Essential (primary) hypertension; R73.9 Hyperglycemia, unspecified; E78.5 Hyperlipidemia, unspecified; F17.210 Nicotine dependence, cigarettes, uncomplicated; R11.2 Nausea with vomiting, unspecified; T45.1X5A Adverse effect of antineoplastic and immunosuppressive drugs, initial encounter; Z99.81 Dependence on supplemental oxygen

== ENCOUNTER 2017-02-11 18:20 | Emergency (ER) | payer MEDICARE ==
[~2017-02-11] VITALS: Ht 157.5 cm; Wt 70.5 kg
[~2017-02-11 18:20] MED LIST: ACET325T51 PO; ALBU18HF INHALATION; APIX2.5T PO; ASCO500C6 PO; BENA20TA PO; CHOL10008 PO; DILT240C85 PO; DOCO1CAP3 PO; DXM4T PO; FLUT16SP NOSTRIL; HYDR-4003 PO; MOME13HF IH; MULT1CAP33 PO; OMEP20TA86 PO; ONDA-54 PO; PARO30TA4 PO; PHEN-684 PO; PRAV80TA2 PO; PROC10TA PO; SULF1TAB35 PO; SYMINH INHALATION
[2017-02-11 18:29] VITALS: PULSE 42; RESP 16; O2SAT 98
[2017-02-11 18:42] VITALS: BP 145/67; PULSE 78; RESP 24; O2SAT 97
--- NOTE | 2017-02-11 19:15 | ED.REPORT ---
HPI-Extremity Problem Lower Date of Service Feb 11, 2017 ED Provider: Amado Contreras MD Patient is a 71 year old female with a history of lung cancer s/p chemotherapy, DDD, COPD, hyperlipidemia and hypertension who presents to the ED with right lower extremity swelling that began yesterday. Her symptoms have improved since onset. The swelling in her leg is not associated with any pain. She denies any recent fever, chills, nausea, vomiting, shortness or breath or chest pain. Patient denies any previous history of blood clots. Patient was recently admitted from the ED on 02/01/2017 for dizziness and was discharged in good condition with Bactrim for a UTI directions to take Eloquis until she was able to follow up with her PCP. Nursing Notes Stated Complaint: RIGHT LEG/FOOT SWELLING Chief Complaint: Extremity Trauma Nursing Notes Reviewed: Yes Allergies: Coded Allergies: ciprofloxacin (Unverified Allergy, Mild, rash, 02/01/17) Scheduled Apixaban (Eliquis) 2.5 Mg Tablet 2.5 MG PO BID Ascorbic Acid (Vitamin C) 500 Mg Capsule.er 1,000 MG PO DAILY Benazepril (Benazepril) 20 Mg Tablet 20 MG PO DAILY Budesonide/Formoterol 160-4.5 mcg Inh (Symbicort 160-4.5 mcg Inh) 120 Puff Inhaler 2 PUFFS INHALATION BID Cholecalciferol (Vitamin D3) (Vitamin D3) 1,000 Unit Tab.chew 2,000 UNIT PO DAILY Dexamethasone (Dexamethasone) 4 Mg Tablet 1 TABLET PO BID Diltiazem ER (Cardizem CD) 240 Mg Cap.er.24h 240 MG PO DAILY Docosahexanoic Acid/Epa (Fish Oil Concentrate Softgel) 1 Each Capsule 1 EACH PO DAILY Fluticasone Propionate (Fluticasone Propionate Nasal) 16 Gm [place].susp 1 SPRAY NOSTRIL BID Mometasone/Formoterol (Dulera 200 Mcg/5 Mcg Inhaler) 13 Gm Hfa.aer.ad 2 PUFFS IH BID Multivitamin (Multivitamins) 1 Each Capsule 1 EACH PO DAILY Omeprazole (Omeprazole) 20 Mg Tablet.dr 20 MG PO BID Paroxetine (Paroxetine) 30 Mg Tablet 30 MG PO DAILY Phenazopyridine (Pyridium) 200 Mg Tablet 200 MG PO TID Pravastatin (Pravastatin) 80 Mg Tablet 80 MG PO HS Sulfamethoxazole/Trimeth 800-160 mg (Bactrim DS 800-160 mg) 1 Each Tablet 1 TABLET PO BID Scheduled PRN Acetaminophen (Acetaminophen) 325 Mg Tablet 1-2 MG PO q4-6h PRN PRN For Fever Albuterol Sulfate (Ventolin HFA Inhaler) 200 Puff/18 Gm Inhaler 2 PUFFS INHALATION Q6H PRN PRN For Shortness of Breath Hydrocodone-Acetaminophen 5-325 mg (Hydrocodone-Acetaminophen 5-325 mg) 1 Each Tablet 1-2 TABLET PO Q6H PRN PRN For Pain Ondansetron (Ondansetron) 8 Mg Tablet 8 MG PO Q8H PRN PRN For Nausea/Vomiting Prochlorperazine Maleate (Prochlorperazine) 10 Mg Tablet 1 TABLET PO Q8H PRN PRN For Nausea/Vomiting General Time Seen by MD: 18:48 Chief Complaint Other (Right Leg Swelling) Hx Obtained From: Patient Arrived By: Walk-in Onset Occurred: Yesterday Symptom Duration: Since onset Severity: Current: No pain currently Severity: Maximum: No pain Associated with: Reports: Swelling, Denies: Chest pain, Difficulty breathing, Fever, Vomiting Pertinent Negative: Pt denies other symptoms Recent Healthcare: No recent hospitalization, Recent doctor visit Past Medical History Past Medical History Lung cancer - chemotherapy treatment DDD Hypertension COPD 1 L NC dependent History of C. difficile colitis in October 2016 GERD Hyperlipidemia Hypertension Sleep apnea Past Surgical History Left subclavian port Hysterectomy Knee Hysterectomy Proscar skip E in November 2016 Colonoscopy with polypectomy Ectopic surgery Lumbar disc surgery Reports: Appendectomy Smoking History Current Every Day Smoker Social History Alcohol Use: Denies alcohol use Drug Use: Denies drug use Other Social History: Good social support, , Local resident Ambulatory Status Independent Review of Systems Constitutional: Denies: Chills, Fever Musculoskeletal: Reports: Extremity swelling (LE swelling) Complete sys rev & neg: except as marked. Respiratory: Denies: Shortness of breath Cardiovascular: Denies: Chest pain GI: Denies: Nausea, Vomiting Physical Exam Initial Vital Signs Vital Signs (First) Date Time Temp Pulse Resp B/P Pulse Ox O2 Delivery O2 Flow Rate FiO2 02/11/17 18:29 37.0 42 16 98 Room Air 02/11/17 18:42 145/67 Initial VS: Reviewed Head / Eyes: Atraumatic, Normocephalic, PERRL Neck: Supple, Non-tender, Full range of motion Upper Extremities: Vascular intact, Neuro intact, No swelling, No tenderness Skin: Warm, Dry, No cyanosis Neurologic: Alert, Oriented, Nonfocal Psychiatric: Mood/affect normal, Behavior normal, Normal thought content Lower Extremity / Pelvis / MS: Atraumatic, Inspection NL, No swelling, Non- tender, Neurologic intact, Vascular intact, No edema Ankle / Foot: Atraumatic, Inspection NL, No swelling, Neurologic intact, Vascular intact General/Constitutional: Awake, Alert, No acute distress, Well appearing, Well developed Respiratory / Chest: Atraumatic, No respiratory distress RESPIRATORY: Coarse breath sounds throughout lung caban Cardiovascular: Heart rate NL, No murmurs, No rubs, Peripheral circulation NL ( No LE edema appreciated), Pulses = bilaterally CARDIO: Port present in chest wall no signs of infection Interpretation & Diagnostics Lab Results Interpretation Result Diagram: 02/11/17192402/11/171924 Test 02/11/17 19:25 02/11/17 20:30 White Blood Count 1.9th/mm3 (3.8-10.1) Red Blood Count 2.86mil/mm3 (3.90-5.20) Hemoglobin 8.4g/dL (12.0-15.6) Hematocrit 24.9% (35.0-46.0) Mean Corpuscular Volume 87.1fL (81-100) Mean Corpuscular Hemoglobin 29.4pg (27.0-35.0) Mean Corpuscular Hemoglobin Concent 33.7% (32.0-37.0) Red Cell Distribution Width 16.5% (12.3-15.4) Platelet Count 94bil/L (150-400) Neutrophils (%) (Auto) 63.9% (40-74) Lymphocytes (%) (Auto) 21.8% (14-46) Monocytes (%) (Auto) 13.8% (4-12) Eosinophils (%) (Auto) 0% (0-5) Basophils (%) (Auto) 0% (0-3) Prothrombin Time 9.7sec (8.1-12.5) Prothromb Time International Ratio 0.91ratio Sodium Level 135mEq/L (134-144) Potassium Level 4.7mEq/L (3.5-5.2) Chloride Level 103mEq/L (97-108) Carbon Dioxide Level 21mmol/L (18-29) Blood Urea Nitrogen 10mg/dL (8-27) Creatinine 0.49mg/dL (0.57-1.00) Estimat Glomerular Filtration Rate 178mL/min (>59) Glucose Level 92mg/dL (60-99) Calcium Level 9.9mg/dL (8.5-10.1) Total Bilirubin 0.2mg/dL (0.0-1.2) Aspartate Amino Transf (AST/SGOT) 12U/L (0-50) Alanine Aminotransferase (ALT/SGPT) 17U/L (0-32) Alkaline Phosphatase 45U/L (25-165) Troponin T < 0.010ug/L (0.0-0.011) Total Protein 5.4g/dL (6.4-8.4) Albumin 3.2g/dL (3.4-5.0) Hold [place] Top Tube Received (Received) Hold Urine Received (Received) US Soft Tissue/Musculoskeletal IMPRESSION: No evidence of deep venous thrombosis. Dictated by: Norberto Valero M.D. on 02/11/2017 at 20:53 Exam Performed by: Radiologist Re-Eval/Medical Decision Med Decision/Clinical Course Patient is a 71 year old female with a history of lung cancer s/p chemotherapy, DDD, COPD, hyperlipidemia and hypertension who presents to the ED with right lower extremity swelling that began yesterday. Her symptoms have improved since onset. She is concerned for possible DVT. Here in the emergency department she is afebrile, he would not stable and in no apparent distress. She has no other concerns. She is currently receiving chemotherapy. US: IMPRESSION: No evidence of deep venous thrombosis. LABS WBC 1.9 (down from prior -3.9) Hct 21.9 (down from prior - 28.4) Plt stable at baseline 94 Coag normal CMP unremarkable The above findings were reviewed with the patient. She states that she feels reassured. She reports that her primary concern with coming to the emergency room today was rule out of DVT. There is no evidence of abscess or cellulitis. Frankly, and my assessment any swelling of her leg is extremely subtle and barely perceivable. She is neurovascularly intact in the affected extremity. I feel that she is appropriate for discharge. She is leukopenic this is not unexpected in the setting of her chemotherapy and she will follow this up further with her oncologist. Prior to discharge follow-up and return precautions were reviewed in detail with the patient who verbalized understanding and agreement with the plan. The patient was discharged in stable condition. Re-Evaluation/Progress : Time of Eval: 20:31 Counseled Regarding: Diagnosis, Lab results, Need for follow-up, When/why to return to ED Discharge & Departure Impression: Primary Impression: Right leg swelling Additional Impressions: Patient on antineoplastic chemotherapy regimen Leukopenia due to antineoplastic chemotherapy Disposition: Home Discharge Condition All VS Reviewed: Yes Condition: Stable Additional Instructions: Thank you for seeking care at emergency room. Our primary goal today in the ED was to evaluate you for any life-threatening conditions. Your evaluation was reassuring.Your ultrasound was negative for a blood clot, however a clear cause of your symptoms was not identified. You should follow-up with your primary doctor and oncologist in the next week. You should return to the ED immediately if you develop any worsening swelling in your leg, fevers, vomiting, cough, shortness of breath, chest pain, lightheadedness, weakness or any other concerning signs or symptoms. Thank you for letting us partake in your care today. Referrals: JARRETT DAVID MD (PCP) Baudilio Attestation Portions of this note were transcribed by Sharron Troncoso. I, Dr. Contreras personally performed the history, physical exam and medical decision-making; I reviewed and confirmed the accuracy of the information in the transcribed note. Signed by: Baudilio Angulo, 02/11/17 [id number]. copies to: JARRETT DAVID MD, Beck O MD Feb 11, 2017 19:15 SHARRON TRONCOSO Feb 11, 2017 20:32
[2017-02-11 19:44] LABS: BASOPHILS % (AUTO) 0 % (0-3)
[2017-02-11 19:49] LABS: EOSINOPHILS % (AUTO) 0 % (0-5); MONOCYTES % (AUTO) 13.8 % (4-12); Mean Corpuscular Hemoglobin 29.4 pg (27.0-35.0); Mean Corpuscular Volume 87.1 fL (81-100); NEUTROPHILS % (AUTO) 63.9 % (40-74); Platelet Count 94 bil/L (150-400)
[2017-02-11 19:51] LABS: INR 0.91 ratio
[2017-02-11 20:03] LABS: TROPONIN T < 0.010 ug/L (0.0-0.011)
[2017-02-11] MEDS ORDERED: HepLOK Flush 100 unit/mL 5 mL Inj ONE (20:37)
[2017-02-11 20:45] VITALS: BP 151/62; PULSE 81; RESP 22; O2SAT 96
--- NOTE | 2017-02-11 20:55 | DRSVH ---
PROCEDURE: US VEINOUS LEG DUPLEX UNILATERAL, RIGHT INDICATIONS: right leg swelling, pain / R/O DVT TECHNIQUE: Real-time imaging, as well as color and pulse Doppler interrogation, were performed of the lower extr emity deep veins from the inguinal ligament to the popliteal fossa. COMPARISON: None. FINDINGS: The deep veins are normally compressible, and free of intraluminal thrombus. Color and pu lse Doppler demonstrate normal phasic intraluminal flow. There is normal augmentation response to di stal compression maneuver. IMPRESSION: No evidence of deep venous thrombosis. Dictated by: Norberto Valero M.D. on 02/11/2017 at 20:53 Approved by: Norberto Valero M.D. on 02/11/2017 at 20:53
== END 2017-02-11 20:47 | disposition home or self-care (01) ==
LOC: SED 18:20
DX: D70.1 Agranulocytosis secondary to cancer chemotherapy (principal); Z92.21 Personal history of antineoplastic chemotherapy; I10 Essential (primary) hypertension; E78.5 Hyperlipidemia, unspecified; K21.9 Gastro-esophageal reflux disease without esophagitis; J44.9 Chronic obstructive pulmonary disease, unspecified; Z88.1 Allergy status to other antibiotic agents; F17.200 Nicotine dependence, unspecified, uncomplicated
CPT/HCPCS: 36415; 80053; 84484; 85025; 85610; 93971; 99284; J1642